=== PATIENT | female | born 1985 | race Two or more races ===

== ENCOUNTER 2022-03-05 10:55 | Emergency (ER) | payer BC ==
[~2022-03-05] VITALS: Ht 162.6 cm; Wt 78.9 kg
[2022-03-05 11:53] LABS: Basophils # (auto) 0 10 ^3/uL (0-0.2); Basophils % (auto) 0.3 % (0.0-2.0); Eosinophils # (auto) 0.2 10 ^3/uL (0-0.8); Eosinophils % (auto) 2.3 % (0.0-7.0); Hematocrit 46.9 % (36.0-46.0); Hemoglobin 15.5 g/dL (12.2-16.2); Lymphocytes # (auto) 1.2 10 ^3/uL (0.4-5.4); Lymphocytes % (auto) 17.8 % (10.0-50.0); Mean Corpuscular Hemoglobin 29.1 pg (28.0-32.0); Mean Corpuscular Hgb Conc. 33.1 g/dL (32.0-36.0); Mean Corpuscular Volume 87.8 fL (80.0-100.0); Monocytes # (auto) 0.4 10 ^3/uL (0-1.3); Monocytes % (auto) 5.8 % (0.0-12.0); Neutrophils # (auto) 5.2 10 ^3/uL (1.6-8.6); Neutrophils % (auto) 73.8 % (37.0-80.0); Nucleated Red Blood Cells % 0.1 %; Red Blood Cells 5.34 10^6/uL (4.0-5.20); Red Cell Distribution Width 13.1 % (11.8-14.3)
[2022-03-05 12:13] LABS: Calcium 9.5 mg/dL (8.5-10.1); Potassium 4.3 mmol/L (3.5-5.1)
[2022-03-05 12:16] LABS: BUN/Creatinine Ratio 7.4
[2022-03-05 12:21] LABS: Bilirubin, Total 0.5 mg/dL (0.2-1.0); Total Protein 9.1 g/dL (6.4-8.2)
[2022-03-05 15:35] VITALS: BP 121/75
== END 2022-03-05 15:37 | disposition home or self-care (01) ==
LOC: ER 10:55
DX: R06.02 Shortness of breath (principal); F41.9 Anxiety disorder, unspecified; Z98.890 Other specified postprocedural states
CPT/HCPCS: 36415; 71045; 71275; 80053; 85025; 85379

== ENCOUNTER 2022-08-21 20:51 | Emergency (ER) | payer BC ==
[~2022-08-21] VITALS: Ht 162.6 cm; Wt 75.0 kg
[2022-08-21 21:15] LABS: Basophils # (auto) 0 10 ^3/uL (0-0.2); Basophils % (auto) 0.5 % (0.0-2.0); Eosinophils # (auto) 0.1 10 ^3/uL (0-0.8); Eosinophils % (auto) 1.5 % (0.0-7.0); Hemoglobin 12.2 g/dL (12.2-16.2); Lymphocytes # (auto) 2.9 10 ^3/uL (0.4-5.4); Lymphocytes % (auto) 41.2 % (10.0-50.0); Mean Corpuscular Hgb Conc. 32.2 g/dL (32.0-36.0); Mean Corpuscular Volume 83.9 fL (80.0-100.0); Monocytes # (auto) 0.4 10 ^3/uL (0-1.3); Monocytes % (auto) 6.3 % (0.0-12.0); Neutrophils # (auto) 3.5 10 ^3/uL (1.6-8.6); Neutrophils % (auto) 50.5 % (37.0-80.0); Nucleated Red Blood Cells % 0.1 %; Red Blood Cells 4.53 10^6/uL (4.0-5.20); Red Cell Distribution Width 13.2 % (11.8-14.3)
[2022-08-21] MEDS ORDERED: HYDROmorphone HCL 2 MG/ML VL/or syr IV ONE (21:45)
[2022-08-21] MEDS ORDERED: ONDANSETRON HCL 4 MG/2 ML VIAL IV ONE (21:45)
[2022-08-21] MEDS ORDERED: SODIUM CHLORIDE 0.9% 1,000 ML IV ONE (21:45)
[2022-08-21 22:06] LABS: Albumin 3.4 g/dL (3.4-5.0); BUN/Creatinine Ratio 10.9 (10.0-20.0); Calcium 8.7 mg/dL (8.5-10.1); Magnesium 2.1 mg/dL (1.6-2.6); Potassium 4.1 mmol/L (3.5-5.1)
[2022-08-21 22:10] LABS: Bilirubin, Total 0.1 mg/dL (0.2-1.0); Total Protein 7.7 g/dL (6.4-8.2)
[2022-08-22 01:14] LABS: Urine Bacteria NONE SEEN /hpf (None Seen); Urine Blood Negative /uL (Negative); Urine Specific Gravity 1.012 (1.001-1.035); Urine WBC <1 /hpf (0 - 5)
[2022-08-22] MEDS ORDERED: IBUP-1456 PO (01:47)
[2022-08-22 02:48] VITALS: BP 106/61
== END 2022-08-22 03:04 | disposition home or self-care (01) ==
LOC: ER 20:51 → EEVIPCON 20:51 → ER 08-22 03:02
DX: K80.50 Calculus of bile duct without cholangitis or cholecystitis without obstruction (principal); Z88.8 Allergy status to other drugs, medicaments and biological substances; Z98.890 Other specified postprocedural states
CPT/HCPCS: 36415; 71046; 71250; 74176; 76705; 80053; 81001; 83690; 83735; 84484; 85025; 93005; 96360; 99285; J7030

== ENCOUNTER 2023-08-09 21:47 | Emergency (ER) | payer BC, OTHER ==
[~2023-08-09] VITALS: Ht 162.6 cm; Wt 72.0 kg
[~2023-08-09 21:47] MED LIST: IBUP-1456 PO
[2023-08-09 21:48] VITALS: BP 138/88; PULSE 86; RESP 20; O2SAT 97
[2023-08-09] MEDS ORDERED: HYDR50CA2 PO (22:45)
[2023-08-09] MEDS: LORazepam 0.5 MG TAB PO ONE (22:54)
== END 2023-08-09 23:37 | disposition home or self-care (01) ==
LOC: ER 21:47
DX: F41.9 Anxiety disorder, unspecified (principal); E03.9 Hypothyroidism, unspecified; Z98.51 Tubal ligation status; Y08.89XA Assault by other specified means, initial encounter; Y93.89 Activity, other specified; Y92.89 Other specified places as the place of occurrence of the external cause; Y99.8 Other external cause status